=== PATIENT | male | born 1945 | race Caucasian/White ===

== ENCOUNTER → 2018-01-06 | Outpatient (CLI) | payer MEDICARE, OTHER ==
[~2018-01-06] MED LIST: ASP325T PO; CRESTOR40 MG PO; METO-272 PO; OMG1KC PO; RAMI2.5C PO
== END ==
LOC: CARD 08:29
PROVIDERS: ATTEND Internal Medicine Cardiovascular Disease
DX: I25.10 Atherosclerotic heart disease of native coronary artery without angina pectoris (principal); I11.0 Hypertensive heart disease with heart failure; I50.9 Heart failure, unspecified; I65.29 Occlusion and stenosis of unspecified carotid artery; E78.5 Hyperlipidemia, unspecified
CPT/HCPCS: 93306

== ENCOUNTER → 2018-08-31 | Outpatient (CLI) | payer MEDICARE, OTHER ==
[~2018-08-31] MED LIST changes: +CATHETER FLUSH 10 ML SYR IV PRN
[2018-08-31 13:32] VITALS: BP 174/100
--- NOTE | 2018-08-31 16:09 | STRESS TEST ---
DATE OF SERVICE: 08/31/2018 EXERCISE MYOVIEW STRESS TEST REPORT Baseline heart rate is 82. Baseline blood pressure is 175/100. Baseline EKG sinus rhythm with no ischemic changes. In summary, the patient was injected with 10.95 mCi of technetium-99 Myoview and the resting images were obtained. Then, the patient started exercising with a baseline heart rate, blood pressure and EKG mentioned above. The patient was able to exercise for 5 minutes and 15 seconds on standard Deon protocol. With peak exercise level, the patient received 28.8 mCi of technetium-99 Myoview. The patient was noted to have occasional PVCs during exercise and during recovery. Minimal changes. No acute ischemic changes. The resting and stress images were reviewed and compared in the short axis, horizontal long axis, and vertical long axis views. Review of the images showed reversible ischemia involving the mid to apical anterolateral and inferolateral wall, transient ischemic dilatation with TID value 1.11. On the gated images, the left ventricle appeared to be in normal size with normal contractility. Calculated ejection fraction 59%. CONCLUSION: 1. Fair exercise tolerance, a total of 5 minutes and 15 seconds on standard Deon protocol. 2. Exercise induced frequent premature ventricular contractions persisted during exercise and early in recovery. 3. Mild ischemia involving the mid to apical anterolateral and inferolateral wall. 4. Normal left ventricular size with normal contractility. Calculated ejection fraction 59%. Job ID: [id number] DocumentID: [id number] Dictated Date: 08/31/2018 15:56:53 Wood Engraver Date: 08/31/2018 16:09:22 Dictated By: GISELL MARTINES MD
== END ==
LOC: CARD 11:24
PROVIDERS: ATTEND Internal Medicine Cardiovascular Disease
DX: I25.10 Atherosclerotic heart disease of native coronary artery without angina pectoris (principal); I11.0 Hypertensive heart disease with heart failure; I50.9 Heart failure, unspecified; E78.5 Hyperlipidemia, unspecified; G45.9 Transient cerebral ischemic attack, unspecified
CPT/HCPCS: 78452; 93017

== ENCOUNTER 2018-09-14 06:34 | Day surgery (SDC) | payer MEDICARE, OTHER ==
[~2018-09-14] VITALS: Ht 175.3 cm; Wt 85.3 kg
[2018-09-14] VITALS (11 sets, daily range): BP systolic 130–177; BP diastolic 78–92
[~2018-09-14 06:34] MED LIST changes: -CATHETER FLUSH 10 ML SYR IV PRN
[2018-09-14] MEDS ORDERED: NS IV 1000 ML 1,000 ML IV SCH ×2 (06:45→08:29)
[2018-09-14] MEDS ORDERED: HEParin (CATH LAB) 2,000 ML IV ONE (06:45)
[2018-09-14] MEDS ORDERED: LIDOCAINE 1% INJ 20 ML 20 ML VIAL ONE (06:45)
[2018-09-14 07:09] LABS: BILIRUBIN,URINE NEGATIVE (NEGATIVE); CLARITY,URINE CLEAR; COLOR,URINE YELLOW; GLUCOSE, URINE (UA) NEGATIVE (NEGATIVE); KETONES,URINE NEGATIVE (NEGATIVE); LEUKOCYTE ESTERASE ,URINE NEGATIVE (NEGATIVE); NITRITE,URINE NEGATIVE (NEGATIVE); PH,URINE 6 (5-9); PROTEIN,URINE NEGATIVE (NEGATIVE); UROBILINOGEN,URINE NORMAL (NORMAL)
[2018-09-14 07:13] LABS: HEMOGLOBIN 13.5 G/DL (13.3-17.7); MEAN PLATELET VOLUME 9.1 FL (7.4-10.4); RED BLOOD COUNT 4.51 10^6/uL (4.35-5.85); RED CELL DISTRIBUTION WIDTH 13.3 % (10.0-14.5); WHITE BLOOD COUNT 5.6 10^3/uL (4.3-11.0)
[2018-09-14 07:15] LABS: BACTERIA,URINE NEGATIVE /HPF; SQUAMOUS EPITHELIAL CELL,UR 0-2 /HPF; WBC,URINE 0-2 /HPF
[2018-09-14 07:19] LABS: PROTHROMBIN TIME PATIENT 12.6 SEC (12.2-14.7)
[2018-09-14] MEDS ORDERED: fentaNYL INJECTION 100 MCG/2 ML AMP ONE (07:25)
[2018-09-14] MEDS ORDERED: HEParin 1000 UNIT/ML (10ML VIAL) FOR BOLUS ONE (07:25)
[2018-09-14] MEDS ORDERED: MIDAZOLAM 5 MG/5 ML (VERSED) VIAL ONE (07:25)
[2018-09-14 07:28] LABS: ALANINE AMINOTRANSFERASE 19 U/L (0-55); ALBUMIN 4.2 GM/DL (3.2-4.5); ALKALINE PHOSPHATASE 48 U/L (40-136); BILIRUBIN,TOTAL 0.8 MG/DL (0.1-1.0); BUN/CREATININE RATIO 16; CALCIUM 9.2 MG/DL (8.5-10.1); CARBON DIOXIDE 24 MMOL/L (21-32); CHLORIDE 107 MMOL/L (98-107); CHOLESTEROL 145 MG/DL (< 200); CREATININE SERUM 1.11 MG/DL (0.60-1.30); GFR ESTIMATED > 60; GLUCOSE 103 MG/DL (70-105); HDL CHOLESTEROL 42 MG/DL (40-60); POTASSIUM 4.2 MMOL/L (3.6-5.0); SODIUM 139 MMOL/L (135-145); TOTAL PROTEIN 6.8 GM/DL (6.4-8.2); TRIGLYCERIDES 83 MG/DL (<150); VLDL CHOLESTEROL 17 MG/DL (5-40)
--- NOTE | 2018-09-14 07:28 | Diagnostic Imaging Report ---
INDICATION: Coronary artery disease. 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 Heart size and pulmonary vascularity are normal. Lungs are clear. There are no effusions or pneumothoraces. IMPRESSION: No acute abnormalities in the chest. Dictated by: Dictated on workstation # [id number]
[2018-09-14] MEDS ORDERED: FLU QUADRIvalent (5+ YOA) 2018-2019 (AFLURIA) 0.5 ML IM ONE (07:30)
--- NOTE | 2018-09-14 08:07 | Cardiac Procedure Note-CS/ASA ---
Pre-Procedure Note Pre-Op Procedure Note H&P Reviewed The H&P was reviewed, patient examined and no changes noted. Date H&P Reviewed: Sep 14, 2018 Time H&P Reviewed: 08:06 Conscious Sedation Pre-Proced Time 08:06 ASA Score 3 For ASA 3 and 4: Consider anesthesia and medical clearance. Also, for patients with a history of failed moderate sedation consider anesthesia. Airway Lungs Heart ASA score ASA 1: a normal healthy patient ASA 2: a patient with a mild systemic disease (mid diabetes, controlled hypertension, obesity x ASA 3: a patient with a severe systemic disease that limits activity (angina , COPD, prior Myocardial infarction) ASA 4: a patient with an incapacitating disease that is a constant threat to life (CHF, renal failure) ASA 5: a moribund patient not expected to survive 24 hrs. (ruptured aneurysm) ASA 6: a declared brain patient whose organs are being harvested. For emergent operations, add the letter E after the classification Mallampati Classification Grade 3 Sedation Plan Analgesia, Amnesia, Plan communicated to team members, Discussed options with patient/fam, Discussed risks with patient/fam The patient is an appropriate candidate to undergo the planned procedure, sedation, and anesthesia. The patient immediately re-assessed prior to indication. GISELL MARTINES MD Sep 14, 2018 08:06
[2018-09-14] MEDS ORDERED: PATIENT MAY USE OWN MEDS, ALL PO SCH (08:30)
--- NOTE | 2018-09-14 08:31 | Discharge Inst-Post CATH ---
Discharge Inst-CATH Post Cardiac Cath D/C Inst Follow Up/Plan Appointment with Dr. Raymond's office in 2-4 weeks CARDIAC CATH DISCHARGE INSTRUCTIONS *Hold Metformin for 48 hours post heart cath. ACTIVITY * Go Home directly and rest. * Limit activity of the leg (or wrist if it was used) for 7 days including aerobics, swimming, jogging, bicycling, etc. * Restrict stair-climbing for 7 days if possible, if not, climb up with your non -cath leg, then bring together on the same step. * Avoid lifting, pushing, pulling or excessive movement of the affected extremity for 7 days. * Customary sexual activity may be resumed after 2 days-use caution not to use a position that strains or causes pain to the affected extremity. * No driving for 24 hours. * NO SMOKING. * Avoid straining for bowel movements for 7 days. * Gentle walking on level ground is allowed. * Returning to work will depend on the type of procedure and the results. Your doctor will discuss this with you. CALL YOUR DOCTOR FOR ANY OF THE FOLLOWING: *If bleeding from the puncture site occurs- Apply gentle pressure to site with clean cloth and call your doctor or EMS. * If a knot or lump forms under the skin, increases in size, or causes pain. * If bruising appears to be worsening or moving further down your leg instead of disappearing. * Temperature above 101 F. CARE OF YOUR GROIN INCISION; * Bruising or purple discoloration of the skin near the puncture site is common. * You may shower only, no bathtub bathing for 5 days. Be careful to avoid slipping as your leg may feel stiff. * If a closure device was used on your femoral artery, please see the attached guide regarding care of the device and your leg. * Leave the dressing on, until removed by office staff. CARE OF YOUR WRIST INCISION; * Bruising or purple discoloration of the skin near the puncture site is common. * You may shower. * DO NOT submerge wrist. * Leave dressing on, until removed by office staff.. GISELL RAYMOND MD Sep 14, 2018 08:31
--- NOTE | 2018-09-14 08:38 | Cardiac Cath Report ---
Cardiac Cath Report Physician (s)/Public Health Service Officer (s) Physician GISELL MARTINES MD Pre-Procedure Diagnosis Pre-Procedure Diagnosis: Coronary artery disease Post-Procedure Note Procedure Start Date: Sep 14, 2018 Procedure Start Time: 08:33 Name of Procedure: Coronary angiogram Vein graft angiogram DIAZ angiogram Findings/Procedure Note PROCEDURE NOTE: After explaining the procedure to the patient, all pros and cons were explained , all questions were answered. The patient signed the consent and then he was placed on the cardiac catheterization laboratory. Groin was prepped SL fashion local anesthesia was used. Sheath placed in the right femoral artery. Avel left catheter was used to access the left corner system, multiple views were obtained, I did not intubate the right coronary artery, I used JR catheter to evaluate the vein graft and THIAGO catheter to evaluate the mammary artery. Did not cross the valve due to the fact that patient has prosthetic valve At the end of the procedure the sheath was removed. Closure device was used FINDINGS: ANATOMY: Left Main has mild disease Left Anterior Descending is occluded at the midportion, DIAZ to LAD is patent, the diagonal artery has abci-fk-[id number] disease with occluded vein graft to the diagonal artery Left Circumflex has moderate severe disease proximally, the vein graft jump graft to the first and second obtuse marginal branch is patent Right Coronory Artery was not seen through navajo anatomy, the vein graft to the right coronary artery is patent with excellent flow through the right coronary system Vein graft angiogram Vein graft to the right coronary artery/PDA is patent with excellent flow Vein graft to the first and second obtuse marginal branch, jump graft is patent with excellent flow Vein graft probably to the diagonal artery is occluded DIAZ angiogram: The DIAZ to the LAD is patent, small vessel disease at the distal LAD. 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 Occluded vein graft to the diagonal artery, the navajo diagonal artery is receiving good flow through the navajo system with swvw-hp-nwmkmrlo disease 2. Patent DIAZ to LAD was small vessel disease at the distal LAD 3. Patent vein graft/jump graft to the first and second obtuse marginal branch with good flow distally 4. Patent vein graft to the right coronary artery with excellent flow distally DISCUSSION AND RECOMMENDATION: Abnormal stress test is probably due to small vessel disease, medical therapy is recommended no intervention is needed. The vein graft to the diagonal artery is occluded probably due to the fact that the diagonal artery is receiving good flow through its navajo system Anesthesia Type: Conscious Sedation Estimated blood loss (mL): 25 ml Contrast Amount: 80 ml Total Radiation Dose: 599 mGy Post-Procedure Diagnosis Post-operative diagnosis: Chest pain nonspecific etiology Coronary artery disease Hypertension Hyperlipidemia GISELL MARTINES MD Sep 14, 2018 08:37
== END 2018-09-14 13:00 | disposition home or self-care (01) ==
LOC: CATH 06:34
PROVIDERS: ATTEND Internal Medicine Cardiovascular Disease
DX: R07.9 Chest pain, unspecified (principal); I25.10 Atherosclerotic heart disease of native coronary artery without angina pectoris; I11.0 Hypertensive heart disease with heart failure; I50.9 Heart failure, unspecified; E78.5 Hyperlipidemia, unspecified; I65.23 Occlusion and stenosis of bilateral carotid arteries; Z95.2 Presence of prosthetic heart valve; Z79.899 Other long term (current) drug therapy; Z86.73 Personal history of transient ischemic attack (TIA), and cerebral infarction without residual deficits; Z85.828 Personal history of other malignant neoplasm of skin
CPT/HCPCS: 36415; 71045; 80053; 80061; 81000; 85027; 85610; 85730; 87081; 93455

== ENCOUNTER → 2020-06-20 | Outpatient (CLI) | payer MEDICARE, OTHER | LOC: CARD 08:03 | PROVIDERS: ATTEND Internal Medicine Cardiovascular Disease | DX: I34.0 Nonrheumatic mitral (valve) insufficiency (principal); I11.9 Hypertensive heart disease without heart failure; E78.5 Hyperlipidemia, unspecified; I65.23 Occlusion and stenosis of bilateral carotid arteries; I25.10 Atherosclerotic heart disease of native coronary artery without angina pectoris; Z95.2 Presence of prosthetic heart valve | CPT/HCPCS: 93306 ==

== ENCOUNTER → 2020-11-06 | Outpatient (CLI) | payer MEDICARE, OTHER | LOC: LABNPT 05:45 | PROVIDERS: ATTEND Family Medicine | DX: R05 Cough (principal); R09.81 Nasal congestion; R09.89 Other specified symptoms and signs involving the circulatory and respiratory systems; H04.203 Unspecified epiphora, bilateral; Z20.828 Contact with and (suspected) exposure to other viral communicable diseases | CPT/HCPCS: 87635 ==

== ENCOUNTER → 2021-01-22 | Outpatient (CLI) | payer MEDICARE, OTHER ==
[~2021-01-22] VITALS: Ht 175 cm; Wt 79.0 kg
[~2021-01-22] MED LIST changes: +CATHETER FLUSH 10 ML SYR IV PRN; +REGADENOSON 0.4 MG/5 ML SYR (LEXISCAN) IV ONE
[2021-01-22 08:44] VITALS: BP 136/80
--- NOTE | 2021-01-22 11:14 | Cardiology Stress Test Report ---
Stress Test Report Date of Procedure/Referring: Date of Procedure: Jan 22, 2021 Janina Li Admitting Physician Portillo Morin MD Indications: CAD Baseline Heart Rate: 64 Baseline Blood Pressure: Blood Pressure Systolic: 136 Blood Pressure Diastolic: 80 Baseline Vitals Vital Signs Date Time Temp Pulse Resp B/P (MAP) Pulse Ox O2 Delivery O2 Flow Rate FiO2 01/22/21 08:44 64 18 136/80 (98) 97 Room Air Baseline EKG: Baseline EKG: NSR Summary After explaining the procedure to the patient, he signed a consent and then brought to the stress nuclear laboratory. Patient received 0.4 mg Lexiscan for stress test, ECG, heart rate and blood pressure were monitored continuously. Resting and stress dose of radio tracer were injected, imaging was acquired and reviewed in short axis, horizontal long axis and vertical long axis views. TID: 0.98 SSS: 2 SDS: 2 EF: 65 1. Patient tolerated Lexiscan well 2. Patchy uptake, no significant ischemia or infarction on SPECT images 3. Normal left ventricular size, EF 65 percent GISELL MARTINES MD Jan 22, 2021 11:14
== END ==
LOC: CARD 07:30
PROVIDERS: ATTEND Physician Assistant
DX: I25.10 Atherosclerotic heart disease of native coronary artery without angina pectoris (principal)
CPT/HCPCS: 78452; 93017; A9502

== ENCOUNTER → 2022-07-06 | Outpatient (CLI) | payer MEDICARE ==
[~2022-07-06] MED LIST changes: -CATHETER FLUSH 10 ML SYR IV PRN; -REGADENOSON 0.4 MG/5 ML SYR (LEXISCAN) IV ONE
== END ==
LOC: CARD 07:56
PROVIDERS: ATTEND Physician Assistant
DX: I11.9 Hypertensive heart disease without heart failure (principal); I08.0 Rheumatic disorders of both mitral and aortic valves; I25.10 Atherosclerotic heart disease of native coronary artery without angina pectoris
CPT/HCPCS: 93306

== ENCOUNTER → 2023-06-02 | Outpatient (CLI) | payer MEDICARE ==
[~2023-06-02] VITALS: Ht 175 cm; Wt 79.0 kg
[~2023-06-02] MED LIST changes: +CATHETER FLUSH 10 ML SYR IVP PRN
[2023-06-02 10:01] VITALS: BP 154/83
[2023-06-02 10:03] VITALS: BP 195/89
[2023-06-02 10:12] VITALS: BP 177/91
--- NOTE | 2023-06-02 16:08 | Cardiology Stress Test Report ---
Stress Test Report Date of Procedure/Referring: Date of Procedure: Jun 02, 2023 PCP Portillo Deras MD Admitting Physician Admitting Physician: Attending Physician: Nguyen Raymond MD Baseline Heart Rate: 59 Baseline Blood Pressure: Blood Pressure Systolic: 177 Blood Pressure Diastolic: 91 Vital Signs Date Time Temp Pulse Resp B/P (MAP) Pulse Ox O2 Delivery O2 Flow Rate FiO2 06/02/23 10:01 91 154/83 (106) 06/02/23 10:12 19 Baseline Vital Signs Vital Signs Date Time Temp Pulse Resp B/P (MAP) Pulse Ox O2 Delivery O2 Flow Rate FiO2 06/02/23 10:01 91 154/83 (106) 06/02/23 10:12 19 Baseline EKG: Baseline EKG: NSR Summary: After explaining the procedure and details to the patient, he signed the consent and was brought to the stress nuclear laboratory. Patient exercised on standard Deon protocol, EKG, heart rate and blood pressure were monitored continuously, resting and stress doses of radio tracer were injected, imaging was acquired and reviewed in the short axis, horizontal long axis and vertical long axis views Patient was able to exercise for a total of 7 minutes on Deon protocol, METs 8.5 Maximum heart rate 129 Maximum blood pressure 210/101 Stress EKG, Minimal nondiagnostic changes Recovery EKG, Return to baseline TID: 0.99 SSS: 5 SDS: 5 EF: 59 Conclusion: Good exercise tolerance for 7 minutes on standard Deon protocol, 8.5 METS achieving 92% of maximal expected heart rate Appropriate heart rate response to exercise with hypertensive response to exercise with peak blood pressure 210/101 return to baseline during recovery Minimal nondiagnostic EKG changes with exercise return to baseline during recovery Diaphragmatic attenuation with mild reversible ischemia involving the apex. Most probably due to distal disease or apical artifact. Overall there is no significant ischemia or infarction on SPECT images Normal left ventricular size, ejection fraction 59% Copy Copies To 1: PORTILLO DERAS MD, BASHAR J MD Jun 02, 2023 16:08
== END ==
LOC: CARD 08:30
PROVIDERS: ATTEND Internal Medicine Cardiovascular Disease
DX: I10 Essential (primary) hypertension (principal); I25.10 Atherosclerotic heart disease of native coronary artery without angina pectoris
CPT/HCPCS: 78452; 93017; A9502